=== PATIENT | male | born 1980 | race Caucasian/White ===

== ENCOUNTER 2024-01-17 11:44 | Emergency (ER) | payer OTHER, SELFPAY ==
[2024-01-17 11:37] VITALS: BMI 25.7
--- NOTE | 2024-01-17 11:41 | DI.CT.S_ITS ---
PROCEDURE: CT KIDNEY URETER BLADDER (KUB) INDICATIONS: Right flank pain TECHNIQUE: Axial sections were acquired from the lung bases to the pubic symphysis. Coronal and sagittal reformats were performed. For radiation dose reduction, the following was used: automated exposure control, adjustment of mA and/or kV according to patient size. COMPARISON: None. FINDINGS: Image quality: Diagnostic Lower chest: Lung bases appear unremarkable. No hiatal hernia. Normal heart size where visualized Liver: Solid organs not well evaluated without intravenous contrast. No contour deforming mass Gallbladder and biliary system: Unremarkable, nondilated biliary system Pancreas: No ductal dilation Spleen: Nonenlarged Adrenals: No discrete nodules Kidneys: 1 mm right UVJ stone causing right mild hydroureteronephrosis. Other 2-3 mm nonobstructing calculi are seen in both kidneys. Vessels and lymph nodes: No abdominal aortic aneurysm. No pathologic lymph nodes by size criteria. Bowel and peritoneum: No evidence of small bowel obstruction. No pathologic ascites. The appendix is nondilated Body wall: Unremarkable Pelvis: Bladder is not well evaluated due to under distension. The prostate is not well evaluated. There are calcifications. Bones: Degenerative findings, no acute or suspicious findings. Left laminectomy changes. IMPRESSION: Mild right hydroureteronephrosis secondary to a 1-2 mm right UVJ stone. Other findings above. Dictated by: Pete Rocha M.D. on 01/17/2024 at 12:27 Approved by: Pete Rocha M.D. on 01/17/2024 at 12:31
--- NOTE | 2024-01-17 11:44 | ED_ITS ---
HPI - Abdominal Pain General Chief Complaint: Urogenital-Male Stated Complaint: Kidney Stone Time Seen by Provider: 01/17/24 11:48 Source: EMS Mode of arrival: EMS History of Present Illness HPI narrative: Patient brought in by ambulance from home. Complains sudden onset of right flank right lower quadrant pain 2 days ago with nausea and vomiting. No hematuria. No fever chills. Pain has been waxing and waning but constant. Patient has long history of kidney stones. History of ureteral stent in the past. Patient received by EMS 100 mcg of fentanyl and IV Zofran Related Data Previous Rx's Medication Instructions Recorded hydrocodone 5 mg-acetaminophen 325 1 tab PO Q6H PRN pain #20 tabs 01/17/24 mg tablet ondansetron 4 mg disintegrating 4 mg PO Q8H PRN nausea and 01/17/24 tablet vomiting #20 tabs tamsulosin 0.4 mg capsule 0.4 mg PO DAILY #7 caps 01/17/24 Allergies Allergy/AdvReac Type Severity Reaction Status Date / Time daptomycin Allergy Verified 01/17/24 11:43 erythromycin base Allergy Verified 01/17/24 11:43 vancomycin Allergy Verified 01/17/24 11:43 Review of Systems Review of Systems Narrative: GENERAL: negative chills, fatigue, malaise, fever, sweats. HEENT: negative sinus pain, ear pain, sore throat RESPIRATORY: negative dyspnea, cough CARDIOVASCULAR: negative chest pain, palpitations GASTROINTESTINAL: Positive nausea, vomiting, abdominal pain : negative dysuria, frequency, hematuria MUSCULOSKELETAL: negative muscle or bony pain SKIN: negative rash, skin lesions NEUROLOGIC: negative weakness, numbness Patient History Social History Smoking Status: Never smoker Smoking Status: Never smoker alcohol intake frequency: a few times a month Substance Use Type: does not use Exam Narrative Exam Narrative: GENERAL: in no distress, not toxic not dyspneic HEAD: Normocephalic. EYES: Pupils equal round ENT: Mucous membranes moist. NECK: Trachea midline. CARDIOVASCULAR: Regular rate and rhythm RESPIRATORY: Clear to auscultation. Breath sounds equal bilaterally. No wheezes, rales, or rhonchi. GASTROINTESTINAL: Abdomen soft reproducible right lower quadrant tenderness. No peritoneal signs. Bowel sounds are present. No McBurney's point tenderness. Mild right CVA tenderness. EXTREMITIES: No gross deformities. BACK: Mild right CVA tenderness NEURO: AOx4. SKIN: Warm and dry PSYCH: Not anxious, is cooperative Initial Vital Signs Initial Vital Signs: Vital Signs Pulse Rate 53 L 01/17/24 12:14 Blood Pressure 117/67 01/17/24 12:14 Pulse Oximetry 100 01/17/24 12:14 Course Orders Ordered: ED Orders 01/17/24 11:41 CT kidney ureter bladder (KUB) Stat 01/17/24 11:46 Complete Blood Count AUTO DIFF Stat Comprehensive Metabolic Panel Stat Urinalysis and Microscopic Stat Discontinued Medications Sodium Chloride (Normal Saline 0.9%) 1,000 mls @ 1,000 mls/hr IV BOLUS ONE Stop: 01/17/24 12:59 Last Infusion: 01/17/24 13:25 Dose: Infused Ketorolac Tromethamine (Ketorolac 30 Mg/Ml Vial) 30 mg IV NOW ONE Stop: 01/17/24 11:42 Last Admin: 01/17/24 12:17 Dose: 30 mg Prochlorperazine (Prochlorperazine 10 Mg/2 Ml Vial) 10 mg IV NOW ONE Stop: 01/17/24 11:42 Last Admin: 01/17/24 12:14 Dose: 10 mg Tamsulosin HCl (Tamsulosin 0.4 Mg Capsule) 0.4 mg PO NOW ONE Stop: 01/17/24 12:44 Last Admin: 01/17/24 12:58 Dose: 0.4 mg Vital Signs Vital signs: Vital Signs - 8 hr 01/17/24 12:14 01/17/24 12:14 01/17/24 12:16 Pulse Rate 53 L 51 L 51 L Respiratory Rate Blood Pressure 117/67 Pulse Oximetry 100 99 Oxygen Delivery Method 01/17/24 12:16 01/17/24 12:30 01/17/24 12:30 Pulse Rate 58 L Respiratory Rate Blood Pressure 117/67 120/61 Pulse Oximetry 100 Oxygen Delivery Method 01/17/24 13:10 Pulse Rate 64 Respiratory Rate 18 Blood Pressure 134/66 Pulse Oximetry 100 Oxygen Delivery Method Room Air MDM - Abdominal Pain Lab Data 01/17/24 11:46 01/17/24 11:46 Labs: Lab Results 01/17/24 Range/Units 11:46 WBC 9.6 (4.5-11.0) X10^3/uL RBC 4.66 (4.5-5.9) X10^6/uL Hgb 15.1 (13.5-17.5) g/dL Hct 44.6 (41-53) % MCV 95.8 (80-100) fL MCH 32.4 (26-34) PG MCHC 33.8 (30-36) % RDW 13.5 (11.6-14.8) % Plt Count 134 L (150-400) X10^3/uL Neut % (Auto) 74.6 (50-75) % Lymph % (Auto) 15.9 L (25-40) % Price % (Auto) 7.1 (3-14) % Eos % (Auto) 1.7 L (2-4) % Baso % (Auto) 0.7 (0-2) % Neut # (Auto) 7200 H (6752-7923) /uL Lymph # (Auto) 1500 (8906-7114) /uL Price # (Auto) 700 (0-900) /uL Eos # (Auto) 200 (0-450) /uL Baso # (Auto) 100 (0-100) /uL Sodium 140 (137-145) mmol/L Potassium 4.0 (3.4-5.1) mmol/L Chloride 113 H (98-107) mmol/L Carbon Dioxide 21 L (22-32) mmol/L BUN 30 H (9-20) mg/dL Creatinine 1.67 H (0.66-1.25) mg/dL Estimated GFR 52 L (>60) mL/min BUN/Creatinine Ratio 18.0 (6-22) Glucose 151 H (70-100) mg/dL Calcium 9.0 (8.4-10.2) mg/dL Total Bilirubin 0.6 (0.2-1.3) mg/dL AST 30 (17-59) IU/L ALT 19 (<50) IU/L Alkaline Phosphatase 61 (38-126) U/L Total Protein 7.2 (6.3-8.2) g/dL Albumin 4.3 (3.5-5.0) g/dL Globulin 2.9 (1.7-4.1) g/dL Albumin/Globulin Ratio 1.5 (1.0-2.8) Urine Color Yellow Urine Appearance Slightly cloudy Urine pH 6.5 (4.5-8.0) Ur Specific [place] 1.025 (1.000-1.035) Urine Protein Negative (Negative) Urine Glucose (UA) Negative (Negative) g/dL Urine Ketones Negative (NEGATIVE) Urine Occult Blood 3+ H (Negative) Urine Nitrate Negative (Negative) Urine Bilirubin Negative (NEGATIVE) Urine Urobilinogen 0.2 (0.2) E.U./dL Ur Leukocyte Esterase Negative (NEGATIVE) Urine RBC 10-30/hpf H (0-5/HPF) Urine WBC 0-1/hpf (0-5/HPF) Ur Squamous Epith Cells 0-1 /hpf (0-5/HPF) Urine Bacteria Occasional (0-1) (None) Ur Culture Indicated? Cult not indicated Vol Urine Centrifuged 10ml (spun) Imaging Data CT scan - abdomen/pelvis: Radiologist's Impression: [address] [address] [address] Scan Report Signed Patient: Ok Rosenberg MR#: [id number] : 1980 Acct:[id number] Age/Sex: 43 / M Date of Service: 01/17/24 Loc: ED Accession Number: [id number] Procedure: CT kidney ureter bladder (KUB) Ordering Provider: Hector Zhang MD PROCEDURE: CT KIDNEY URETER BLADDER (KUB) INDICATIONS: Right flank pain TECHNIQUE: Axial sections were acquired from the lung bases to the pubic symphysis. Coronal and sagittal reformats were performed. For radiation dose reduction, the following was used: automated exposure control, adjustment of mA and/or kV according to patient size. COMPARISON: None. FINDINGS: Image quality: Diagnostic Lower chest: Lung bases appear unremarkable. No hiatal hernia. Normal heart size where visualized Liver: Solid organs not well evaluated without intravenous contrast. No contour deforming mass Gallbladder and biliary system: Unremarkable, nondilated biliary system Pancreas: No ductal dilation Spleen: Nonenlarged Adrenals: No discrete nodules Kidneys: 1 mm right UVJ stone causing right mild hydroureteronephrosis. Other 2-3 mm nonobstructing calculi are seen in both kidneys. Vessels and lymph nodes: No abdominal aortic aneurysm. No pathologic lymph nodes by size criteria. Bowel and peritoneum: No evidence of small bowel obstruction. No pathologic ascites. The appendix is nondilated Body wall: Unremarkable Pelvis: Bladder is not well evaluated due to under distension. The prostate is not well evaluated. There are calcifications. Bones: Degenerative findings, no acute or suspicious findings. Left laminectomy changes. IMPRESSION: Mild right hydroureteronephrosis secondary to a 1-2 mm right UVJ stone. Other findings above. Dictated by: Pete Rocha M.D. on 01/17/2024 at 12:27 Approved by: Pete Rocha M.D. on 01/17/2024 at 12:31 [facility] Narrative Medical decision making narrative: Patient brought in by ambulance from home. Complains sudden onset of right flank right lower quadrant pain 2 days ago with nausea and vomiting. No hematuria. No fever chills. Pain has been waxing and waning but constant. Patient has long history of kidney stones. History of ureteral stent in the past. Patient received 100 mcg of fentanyl and IV Zofran prior to arrival After history and exam CBC CMP urinalysis CT KUB Compazine MDM Medical records reviewed: Differential considered: Includes but not limited to ureteral stone kidney stone appendicitis perforated viscus bowel obstruction UTI pyelonephritis Lab Test results independently reviewed as above. Pertinent findings: WBC 9.6 sodium 140 BUN 30 creatinine 1.67 GFR 52 urinalysis negative ketones Imaging studies independently reviewed: CT KUB 1-2 mm right UVJ stone Consultations: None indicated at this time Treatments: Compazine normal saline Flomax Toradol Re-evaluations: 12:47 p.m.. Patient is pain-free no nausea or vomiting. Reviewed results with patient. Does have a ureteral stone that he would be able to pass. He states he does have established urologist at [facility], who will call on Friday for follow up appointment. He is calling for a ride. Return precautions reviewed. He desires discharge home Discussion: Appropriate for discharge home. Pain and nausea controlled. Renal function reviewed patient has received IV fluids here. Has been able to urinate. Return precautions reviewed. He has established urology services at [facility]. Does not need a work note for the weekend. He desires discharge home. Diagnosis: Ureteral stone Discharge Plan Departure Patient Disposition: Home Clinical Impression: Right distal ureteral calculus Instructions: DI for Kidney Stones Activity Restrictions/Additional Instructions: Please call your urology services/provider on Friday for follow up appointment next week. Prescriptions have been provided for you to treat your kidney stone. Please drink plenty of fluids keep well hydrated. No driving operating machinery today or when taking prescribed pain medication. Return if worse if any questions or concerns Prescriptions: New hydrocodone-acetaminophen 5-325 mg tablet 1 tab PO Q6H PRN (Reason: pain) Qty: 20 0RF tamsulosin 0.4 mg capsule 0.4 mg PO DAILY Qty: 7 0RF ondansetron 4 mg tablet,disintegrating 4 mg PO Q8H PRN (Reason: nausea and vomiting) Qty: 20 0RF Referrals: *Temp,ED* [Primary Care Provider] - Stand Alone Forms: Patient Portal/API
[2024-01-17 11:58] LABS: Add Manual Diff / Slide Review NO; Basophils Absolute Auto 100 /uL (0-100); Basophils Percent Auto 0.7 % (0-2); Eosinophils Absolute Auto 200 /uL (0-450); Eosinophils Percent Auto 1.7 % (2-4); Hematocrit 44.6 % (41-53); Hemoglobin 15.1 g/dL (13.5-17.5); Lymphocytes Absolute Auto 1500 /uL (1100-4500); Lymphocytes Percent Auto 15.9 % (25-40); Mean Corpuscular HGB Conc 33.8 % (30-36); Mean Corpuscular Hemoglobin 32.4 PG (26-34); Mean Corpuscular Volume 95.8 fL (80-100); Monocytes Absolute Auto 700 /uL (0-900); Monocytes Percent Auto 7.1 % (3-14); Neutrophils Absolute Auto 7200 /uL (1500-7000); Neutrophils Percent Auto 74.6 % (50-75); Platelet Count 134 X10^3/uL (150-400); Red Blood Cell Count 4.66 X10^6/uL (4.5-5.9); Red Cell Distribution Width 13.5 % (11.6-14.8); White Blood Cell Count 9.6 X10^3/uL (4.5-11.0)
[2024-01-17 12:14] VITALS: BP 117/67; PULSE 51; PULSE 53; O2SAT 100
[2024-01-17] MEDS: PROCHLORPERAZINE 10 MG/2 ML VIAL IV (12:14)
[2024-01-17 12:16] VITALS: BP 117/67; PULSE 51; O2SAT 99
[2024-01-17] MEDS: SODIUM CHLORIDE 0.9% 1,000 ML 1000 ML IV (12:16)
[2024-01-17] MEDS: KETOROLAC 30 MG/ML VIAL IV (12:17)
[2024-01-17 12:20] LABS: Alanine Aminotransferase 19 IU/L (<50); Albumin 4.3 g/dL (3.5-5.0); Albumin Globulin Ratio 1.5 (1.0-2.8); Alkaline Phosphatase 61 U/L (38-126); Aspartate Aminotransferase 30 IU/L (17-59); Bilirubin Total 0.6 mg/dL (0.2-1.3); Blood Urea Nitrogen 30 mg/dL (9-20); Carbon Dioxide 21 mmol/L (22-32); Chloride 113 mmol/L (98-107); Estimated Glomerular Filt Rate 52 mL/min (>60); Globulin 2.9 g/dL (1.7-4.1); Glucose 151 mg/dL (70-100); HEMOLYSIS 18 (0-50); Sodium 140 mmol/L (137-145); Total Protein 7.2 g/dL (6.3-8.2)
[2024-01-17 12:21] LABS: Bilirubin Urine UA NEGATIVE (NEGATIVE); Color Urine UA YELLOW; Glucose Urine UA NEGATIVE (Negative); Ketones Urine UA NEGATIVE (NEGATIVE); Leukocyte Esterase Urine UA NEGATIVE (NEGATIVE); Nitrite Urine UA NEGATIVE (Negative); Occult Blood Urine UA 3+ (Negative); Protein Urine UA NEGATIVE (Negative); Specific Gravity Urine UA 1.025 (1.000-1.035); Urobilinogen Urine UA 0.2 E.U./dL (0.2); pH Urine UA 6.5 (4.5-8.0)
[2024-01-17 12:29] LABS: Appearance Urine UA Slightly Cloudy
[2024-01-17 12:30] VITALS: BP 120/61; PULSE 58; O2SAT 100
[2024-01-17 12:44] LABS: Bacteria Urine Occasional (0-1); Culture Indicated Urine Cult Not Indicated; RBC Urine 10-30/HPF (0-5/HPF); Squamous Epithelial Cell Urine 0-1 /HPF (0-5/HPF); Urine Volume 10mL (spun); WBC Urine 0-1/HPF (0-5/HPF)
[2024-01-17] MEDS: TAMSULOSIN 0.4 MG CAPSULE PO (12:58)
[2024-01-17 13:10] VITALS: BP 134/66; PULSE 64; RESP 18; O2SAT 100
== END 2024-01-17 13:11 | disposition home or self-care (01) ==
PROVIDERS: Emergency Provider Emergency Medicine
DX: N20.1 Calculus of ureter (principal); R11.2 Nausea with vomiting, unspecified
CPT/HCPCS: 74176; 80053; 81001; 85025; 96361; 96374; 96375; 99284; J0780; J1885

== ENCOUNTER 2024-01-23 18:26 | Emergency (ER) | payer OTHER, SELFPAY ==
[2024-01-23 18:31] VITALS: BP 156/86; PULSE 91; RESP 17; TEMP 37.1; O2SAT 97; BMI 32.1
[2024-01-23 18:43] LABS: Appearance Urine UA CLEAR; Bilirubin Urine UA NEGATIVE (NEGATIVE); Color Urine UA YELLOW; Glucose Urine UA NEGATIVE (Negative); Ketones Urine UA NEGATIVE (NEGATIVE); Leukocyte Esterase Urine UA NEGATIVE (NEGATIVE); Nitrite Urine UA NEGATIVE (Negative); Occult Blood Urine UA TRACE-INTACT (Negative); Protein Urine UA TRACE (Negative)
[2024-01-23 18:50] VITALS: BP 154/78; PULSE 87; O2SAT 96
[2024-01-23 18:53] LABS: Bacteria Urine Occasional (0-1); Culture Indicated Urine Cult Not Indicated; RBC Urine 1-5/HPF (0-5/HPF); Squamous Epithelial Cell Urine 0-1 /HPF (0-5/HPF); Urine Volume 10mL (spun); WBC Urine 1-5/HPF (0-5/HPF)
[2024-01-23 19:00] VITALS: BP 166/84; PULSE 90; O2SAT 96
[2024-01-23 19:30] VITALS: BP 164/72; PULSE 83; O2SAT 95
[2024-01-23 20:00] VITALS: BP 152/83; PULSE 79; O2SAT 96
--- NOTE | 2024-01-23 20:26 | ED_ITS ---
HPI - Back Pain/Injury General Chief Complaint: Back Pain/Injury Stated Complaint: kidney stones pain Time Seen by Provider: 01/23/24 20:15 Source: patient, EMS, RN notes reviewed and old records reviewed Mode of arrival: EMS Limitations: no limitations History of Present Illness HPI Narrative: 43-year-old male with a history kidney stones history of ureteral stent in the past. Patient was diagnosed last Friday with a kidney stone here. States he had [address] [facility] ([place], [place]) in between because he had increased pain and vomiting with seen given medications and discharge. He had follow-up in the last [address] scan which showed that is stone was still present. Patient states he only has 1 tablet Flomax left in his pain is not being well controlled with hydrocodone. He has vomited a few times but none today. Denies any fevers. Pain is still in the same location has not changed. He denies any issues with urination. He has been somewhat constipated. He is passing flatus. Patient has had multiple kidney stones in the past but states this 1 has just not been able to pass. He has [facility] for pain management Zofran and but only has 1 tablet of tamsulosin. Patient has been given referral to Urology. Related Data Previous Rx's Medication Instructions Recorded hydrocodone 5 mg-acetaminophen 325 1 tab PO Q6H PRN pain #20 tabs 01/17/24 mg tablet ondansetron 4 mg disintegrating 4 mg PO Q8H PRN nausea and 01/17/24 tablet vomiting #20 tabs tamsulosin 0.4 mg capsule 0.4 mg PO DAILY #7 caps 01/17/24 oxycodone 5 mg tablet 5 mg PO Q6H PRN pain #10 tabs 01/23/24 tamsulosin 0.4 mg capsule (Flomax) 0.4 mg PO DAILY #10 caps 01/23/24 Allergies Allergy/AdvReac Type Severity Reaction Status Date / Time daptomycin Allergy Verified 01/23/24 18:31 erythromycin base Allergy Verified 01/23/24 18:31 vancomycin Allergy Verified 01/23/24 18:31 Review of Systems Review of Systems ROS Unobtainable: All systems reviewed & are unremarkable except as noted in HPI and below Patient History Social History Smoking Status: Never smoker Smoking Status: Never smoker alcohol intake frequency: a few times a month Substance Use Type: does not use Exam Narrative Exam Narrative: GENERAL: Alert and oriented x three, male in mild distress. HEENT: Head normocephalic, atraumatic, EOMI, pupils reactive, face symmetric, moist mucous membranes NECK: Supple, full range of motion CARDIOVASCULAR: Regular rate and rhythm without murmurs, rubs or gallops. RESPIRATORY: Breath sounds equal bilaterally, no wheezes rales or rhonchi. ABDOMEN: Soft, nontender. Normoactive bowel sounds all 4 quadrants. No guarding or rebound, rigidity, no mass : No CVA tenderness EXTREMITIES: Normal range of motion, no clubbing or edema. Neurovascularly intact NEUROLOGICAL: Cranial nerves II through XII grossly intact. Moving all extremities SKIN: Warm, dry, no petechiae, no rashes or lesions. Initial Vital Signs Initial Vital Signs: Vital Signs Temperature 98.8 F 01/23/24 18:31 Pulse Rate 91 H 01/23/24 18:31 Respiratory Rate 17 01/23/24 18:31 Blood Pressure 156/86 H 01/23/24 18:31 Pulse Oximetry 97 01/23/24 18:31 Oxygen Delivery Method Room Air 01/23/24 18:31 Course Orders Ordered: Discontinued Medications Ketorolac Tromethamine (Ketorolac 30 Mg/Ml Vial) 30 mg IM NOW ONE Stop: 01/23/24 20:40 Last Admin: 01/23/24 20:46 Dose: 30 mg Documented By: AB Vital Signs Vital signs: Vital Signs - 8 hr 01/23/24 18:31 Temperature 98.8 F Pulse Rate 91 H Respiratory Rate 17 Blood Pressure 156/86 H Pulse Oximetry 97 Oxygen Delivery Method Room Air MDM - Back Pain/Injury Lab Data Labs: Lab Results 01/23/24 Range/Units 18:33 Urine Color Yellow Urine Appearance Clear Urine pH 7.0 (4.5-8.0) Ur Specific [place] 1.010 (1.000-1.035) Urine Protein Trace H (Negative) Urine Glucose (UA) Negative (Negative) g/dL Urine Ketones Negative (NEGATIVE) Urine Occult Blood Trace-intact (Negative) Urine Nitrate Negative (Negative) Urine Bilirubin Negative (NEGATIVE) Urine Urobilinogen 1.0 (0.2) E.U./dL Ur Leukocyte Esterase Negative (NEGATIVE) Urine RBC 1-5/hpf D (0-5/HPF) Urine WBC 1-5/hpf (0-5/HPF) Ur Squamous Epith Cells 0-1 /hpf (0-5/HPF) Urine Bacteria Occasional (0-1) (None) Ur Culture Indicated? Cult not indicated Vol Urine Centrifuged 10ml (spun) MDM Narrative Medical decision making narrative: 43-year-old male with known kidney stone seen on CT imaging on Friday here, patient has a 1-2 mm stone on the right with mild hydro. He would repeat imaging which he states did not show any worsening of his hydro. He has had some trouble controlling his pain but has also about to run out of his medications. He has been referred to urology but has not seen them. Discussed with patient can repeat labs, urine and CT KUB or ultrasound which would have less radiation. Patient prefers to have a dose of pain medication, urine shows blood but no clear signs of infection. And patient we will hold off on labs and imaging. We will refill his Flomax as well as change his narcotic pain medication at oxycodone. He does have Tylenol and ibuprofen for pain management as well as Zofran at home. Patient asked for a printed prescription. Discharge Plan Departure Patient Disposition: Home Clinical Impression: Right distal ureteral calculus Instructions: DI for Kidney Stones Activity Restrictions/Additional Instructions: Follow up with Urology, contact is given from a local Urology if you prefer. You can reach out Friday morning to set up follow up if you prefer. Take Flomax once daily. You can continue with Tylenol up to a 1000 mg every 6 hours and/or ibuprofen up to 600 mg every 6 hours. If inadequate for pain you can take 1-2 tablets of oxycodone every 6 hours as needed. This medication can make you sleepy do not drive, perform hazardous activities or make any major decisions while taking it. This medication will make you constipated please take a stool softener once to twice daily until stools are soft and regular. Prescription printed. Please return for fevers, persistent or rapidly worsening pain, persistent vomiting, lightheadedness or passing out, inability to urinate or other new or concerning changes. Prescriptions: New tamsulosin [Flomax] 0.4 mg capsule 0.4 mg PO DAILY Qty: 10 0RF oxycodone 5 mg tablet 5 mg PO Q6H PRN (Reason: pain) Qty: 10 0RF No Action hydrocodone-acetaminophen 5-325 mg tablet 1 tab PO Q6H PRN (Reason: pain) Qty: 20 0RF tamsulosin 0.4 mg capsule 0.4 mg PO DAILY Qty: 7 0RF ondansetron 4 mg tablet,disintegrating 4 mg PO Q8H PRN (Reason: nausea and vomiting) Qty: 20 0RF Referrals: *Temp,ED* [Primary Care Provider] - Tanmay Betts MD [Physician] - Stand Alone Forms: Patient Portal/API
[2024-01-23 20:30] VITALS: BP 146/94; PULSE 75; O2SAT 97
[2024-01-23] MEDS: KETOROLAC 30 MG/ML VIAL IM (20:46)
== END 2024-01-23 20:56 | disposition home or self-care (01) ==
PROVIDERS: Emergency Provider Emergency Medicine
DX: N13.2 Hydronephrosis with renal and ureteral calculous obstruction (principal)
CPT/HCPCS: 81001; 96372; 99283; J1885